=== PATIENT | male | born 1965 | race Caucasian/White ===

== ENCOUNTER 2024-08-17 10:58 | Outpatient (CLI) | payer BC | END 2024-08-17 10:59 | disposition home or self-care (01) | LOC: CSHCT 10:58 | PROVIDERS: ATTEND Family Medicine | DX: Z12.2 Encounter for screening for malignant neoplasm of respiratory organs (principal); Z87.891 Personal history of nicotine dependence; K44.9 Diaphragmatic hernia without obstruction or gangrene; N62 Hypertrophy of breast; M47.819 Spondylosis without myelopathy or radiculopathy, site unspecified; M48.10 Ankylosing hyperostosis [Forestier], site unspecified | CPT/HCPCS: 71271 ==